=== PATIENT | female | born 1940 | race Caucasian/White ===

== ENCOUNTER 2020-03-02 04:03 | Outpatient (CLI) | payer MEDICARE ==
[~2020-03-02] VITALS: Ht 142.2 cm; Wt 50.0 kg
[2020-03-02] MEDS ORDERED: HYDROCODON-ACE1 EA10 PO (04:08)
[2020-03-02 04:27] LABS: HEMATOCRIT 41.3 % (36.0-48.0); HEMOGLOBIN 12.7 g/dL (12-16); MCH 30.4 pg (26.0-34.0); MCHC 30.8 g/dL (31.0-37.0); MCV 98.8 fL (80.0-100.0); MEAN PLATELET VOLUME 9.5 fL (7.4-10.4); PLATELET COUNT 257 10x3/uL (130-400); RBC 4.18 10x6/uL (4.00-5.40); RDW 13.2 % (11.5-14.5); WBC 6.9 10x3/uL (4.8-10.8)
[2020-03-02 04:37] LABS: APTT 23.2 SECONDS (22.8-39.4); INR 0.9 (0.85-1.17); PROTIME 12.1 SECONDS (11.6-15.0)
[2020-03-02 04:45] LABS: CALC OSMOLALITY 289 mosm/kg (275-300); CALCIUM 8.6 mg/dL (8.5-10.1); CARBON DIOXIDE 25.9 mmol/L (21.0-32.0); CHLORIDE - SERUM 103 mmol/L (98-107); CREATININE - SERUM 0.9 mg/dL (0.6-1.3); GLUCOSE 153 mg/dL (74-106); POTASSIUM - SERUM 3.7 mmol/L (3.5-5.1); SODIUM 141 mmol/L (136-145); UREA NITROGEN 28 mg/dL (7-18); eGFR NON AFRICAN AMERICAN 64 mL/min (90-120)
[2020-03-02 04:56] LABS: EOSINOPHILS 1 % (0-7); LYMPHOCYTES 57 % (15-50); MONOCYTES 1 % (2-11); NEUTROPHILS 41 % (40-80); PLATELET ESTIMATE NORMAL
[2020-03-02 04:57] LABS: D-DIMER-QUANTITATIVE 4.17 ug/mLFEU (0.20-0.54)
[2020-03-02 05:02] LABS: ALBUMIN 3.8 g/dL (3.4-5.0); ALKALINE PHOSPHATASE 77 U/L (30-120); ALT (SGPT) 16 U/L (10-68); BILIRUBIN - TOTAL 0.22 mg/dL (0.2-1.3); CKMB 1.3 U/L (0.0-3.6); CREATINE KINASE 75 UL (21-215); PRO BNP 143 pg/mL (0-450); PROTEIN - SERUM 7.2 g/dL (6.4-8.2)
[2020-03-02 05:03] LABS: TROPONIN-I < 0.017 ng/mL (0.000-0.060)
[2020-03-02 05:21] VITALS: BP 140/64
[2020-03-02 06:00] VITALS: BP 144/76
[2020-03-02 08:42] VITALS: BP 142/72; Ht 142.2 cm; Wt 50.0 kg
--- NOTE | 2020-03-02 09:57 | NUR ---
IN PATIENT CHART TO ASSIST WITH CARES.
--- NOTE | 2020-03-02 12:53 | NUR ---
pt stated that she was going home I asked if she would speak with speak with doctor. she stated she did not want to that she was going home. Angela ACOSTA and was notified they stated that she can leave but it is against medical advice. pt said she was going home no matter what. Paper work filled out after the patient had left the unit and was trying to find her to go home. Med 2 test engineering manager sitting with the patient till her get there.
--- NOTE | 2020-03-04 07:21 | MORECARE ---
CASE MANAGEMENT DISCHARGE SUMMARY PATIENT: ANETTE ESPINOZA UNIT: [id number] ADM DATE: 03/02/20 AGE: 80 : 44 SEX: F ROOM/BED: D.2131 AUTHOR: HEATHER CHANEL PHYSICIAN: REFERRING PHYSICIAN: SHAHID SPANGLER MD DATE OF SERVICE: 03/04/20 Discharge Plan Patient Name: ANETTE ESPINOZA Facility: [facility]:[place] : 1940 Planned Disposition: Anticipated Discharge Date: Discharge Date: 03/02/2020 Expected LOS: 0 Initial Reviewer: [id number] Initial Review Date: 03/04/2020 Generated: 03/04/20 8:20 am Patient Name: ANETTE ESPINOZA Page [id number] at 0721 All edits/amendments must be made on the electronic document DICTATION DATE: 03/04/20719 ETL PROGRAMMER: NALLELY 03/04/20719 RPT#: [id number] DC DATE:03/02/20 STATUS: DIS IN [facility] [address] [place] [address] END OF REPORT
== END 2020-03-02 13:21 | disposition home or self-care (01) ==
LOC: D.OPS 04:03 → D.ER 04:03 → D.M2 06:49 → D.ER 06:49 → D.M2 13:21 → D.OPS 13:21 → EDSTATUS 14:46
PROVIDERS: Family Medicine; ATTEND Family Medicine
DX: J96.22 Acute and chronic respiratory failure with hypercapnia (principal); E11.65 Type 2 diabetes mellitus with hyperglycemia; R19.7 Diarrhea, unspecified; E86.0 Dehydration; L30.9 Dermatitis, unspecified; N95.0 Postmenopausal bleeding; Z11.59 Encounter for screening for other viral diseases; Z53.29 Procedure and treatment not carried out because of patient's decision for other reasons